=== PATIENT | female | born 1940 | race Caucasian/White ===

== ENCOUNTER 2017-09-18 11:36 | Outpatient (CLI) | payer MEDICARE ==
--- NOTE | 2017-09-18 11:54 | RAD ---
LUMBAR SPINE 4 VIEWS: Date: 09/18/17 HISTORY: Low back pain. FINDINGS: There are extensive degenerative changes in the lumbar spine with dextroscoliosis. There is minimal r etrolisthesis of L1 over L2 vertebral bodies. No change in alignment is seen on flexion or extension. IMPRESSION: Lumbar spondylosis and dextroscoliosis. POS: [facility]
== END 2017-09-18 11:37 | disposition home or self-care (01) ==
LOC: SCSRAD 11:36
PROVIDERS: ATTEND Nurse Practitioner Family
DX: S39.012A Strain of muscle, fascia and tendon of lower back, initial encounter (principal); M47.896 Other spondylosis, lumbar region; M41.9 Scoliosis, unspecified
CPT/HCPCS: 72110

== ENCOUNTER 2017-11-05 14:07 | Outpatient (CLI) | payer MEDICARE ==
--- NOTE | 2017-11-05 14:52 | MMO ---
BILATERAL DIGITAL SCREENING MAMMOGRAMS: History: 77-year-old female presents for digital screening mammography. Comparison: 10-31-15, 03-13-12 FINDINGS: This study is interpreted with the assistance of computer aided detection. Scattered areas of fibroglandular density are noted bilaterally. There are stable, typically benign c alcifications. No direct or indirect evidence of malignancy. IMPRESSION: BIRADS category 2 - benign findings. Continue routine screening. POS: DARRELL
== END 2017-11-05 14:08 | disposition home or self-care (01) ==
LOC: SCSMAMMO 14:07
PROVIDERS: ATTEND Family Medicine
DX: Z12.31 Encounter for screening mammogram for malignant neoplasm of breast (principal)
CPT/HCPCS: 77067

== ENCOUNTER 2018-06-17 14:42 | Outpatient (CLI) | payer MEDICARE ==
--- NOTE | 2018-06-17 15:27 | RAD ---
TWO VIEWS CHEST: Date: 06-17-18 Provided Clinical History: Upper respiratory infection. Comparison: None. FINDINGS: Cardiac and mediastinal silhouette is within normal limits. Lungs appear clear. No pleural fluid or p neumothorax apparent. Emphysematous changes are noted. IMPRESSION: No evidence for an acute cardiopulmonary process. POS: [facility]
== END 2018-06-17 14:43 | disposition home or self-care (01) ==
LOC: SCSRAD 14:42
PROVIDERS: ATTEND Family Medicine
DX: J06.9 Acute upper respiratory infection, unspecified (principal)
CPT/HCPCS: 71046

== ENCOUNTER 2022-07-02 05:44 | Observation (INO) | payer OTHER ==
[2022-07-02] MEDS ORDERED: Vancomycin 1 GM/200 ML (FROZEN) BAG ONE (06:02)
[2022-07-02] MEDS ORDERED: Sodium Chloride 0.9% 100 ML ONE ×2 (06:02→06:56)
[2022-07-02] MEDS ORDERED: Tranexamic Acid 1,000 MG/10 ML VIAL ONE (06:02)
[2022-07-02] MEDS ORDERED: Midazolam HCl 2 mg/2 ml Vial ONE (06:09)
[2022-07-02] MEDS ORDERED: FENTANYL 50 MCG/ML 1 ML VIAL ONE (06:09)
[2022-07-02] MEDS ORDERED: Bupivacaine PF 0.5% 30 ML VIAL ONE ×2 (06:29→06:42)
[2022-07-02] MEDS ORDERED: Ipratropium/Albuterol 3 ML NEB ONE (06:39)
[2022-07-02] MEDS ORDERED: Lidocaine 1% (PF) 30 ML VIAL ONE (06:42)
[2022-07-02] MEDS ORDERED: ePHEDrine 50 MG/ML VIAL ONE (06:45)
[2022-07-02] MEDS ORDERED: Bupivacaine HCl 0.5%/Epinephrine 1:200,000/PF 30 ml Vial ONE (06:45)
[2022-07-02] MEDS ORDERED: Ondansetron PF 4 MG/2 ML Vial ONE (06:45)
[2022-07-02] MEDS ORDERED: Ondansetron PF 4 MG/2 ML Vial IVP PRN (06:46)
[2022-07-02] MEDS ORDERED: diphenhydrAMINE 25 MG CAP PO PRN (06:46)
[2022-07-02] MEDS ORDERED: Zolpidem Tartrate 5 MG TAB PO PRN (06:46)
[2022-07-02] MEDS ORDERED: FENTANYL 50 MCG/ML 1 ML VIAL SLOW IVP PRN (06:46)
[2022-07-02] MEDS ORDERED: Acetaminophen 325 MG TAB PO PRN (06:46)
[2022-07-02] MEDS ORDERED: Promethazine HCl 25 MG/ML VIAL IM PRN (06:46)
[2022-07-02] MEDS ORDERED: CEFAZOLIN 2 GM VIAL ONE (06:56)
[2022-07-02] MEDS ORDERED: Propofol 1,000 MG/100 ML VIAL IV ONE (07:08)
[2022-07-02] MEDS ORDERED: Aspirin Chewable 81 MG TAB PO SCH (09:00)
[2022-07-02] MEDS ORDERED: Multivit, Therapeutic 1 TAB PO SCH (09:00)
[2022-07-02] MEDS: Aspirin 81 mg Enteric Coated Tablet PO SCH ×2 (10:27→21:05)
[2022-07-02] MEDS: Sodium Chloride 0.9% 1,000 ML IV SCH ×2 (10:27→12:45)
[2022-07-02] MEDS: Metoprolol Tartrate 25 MG TAB PO SCH ×2 (10:27→20:57)
[2022-07-02] MEDS: Calcium Carbonate 500 MG TAB PO SCH (10:27)
[2022-07-02] MEDS: diphenhydrAMINE 25 MG CAP PO SCH ×2 (10:27→20:56)
[2022-07-02] MEDS: Lisinopril 2.5 MG TAB PO SCH (10:27)
[2022-07-02] MEDS: Montelukast Sodium 10 mg Tablet PO SCH (10:28)
[2022-07-02 10:41] VITALS: BMI 21.6
[2022-07-02] MEDS: HYDROcodone/Acetaminophen 10/325 mg Tablet PO PRN (12:02)
[2022-07-02] MEDS: Ketorolac Tromethamine 30 MG/ML VIAL IVP SCH ×2 (14:24→20:57)
[2022-07-02] MEDS: CEFAZOLIN 2 GM in Sodium Chloride 0.9% 100 ML IVPB SCH ×2 (14:25→23:50)
[2022-07-02] MEDS ORDERED: Atorvastatin Calcium 10 MG TAB PO SCH (21:00)
[2022-07-02] MEDS ORDERED: Loratadine 10 MG TAB PO SCH (21:00)
[2022-07-03] MEDS: Sodium Chloride 0.9% 1,000 ML IV SCH (05:08)
[2022-07-03] MEDS: Ketorolac Tromethamine 30 MG/ML VIAL IVP SCH (05:33)
[2022-07-03] MEDS: HYDROcodone/Acetaminophen 10/325 mg Tablet PO PRN ×2 (05:34→10:04)
[2022-07-03 06:29] LABS: Hemoglobin 10.1 g/dL (12.0-16.0); Mean Corpuscular Hemoglobin 29.4 pg (27.0-31.0); Mean Corpuscular Volume 89.1 fl (78.0-98.0); Mean Platelet Volume 7.1 fL (7.4-10.4); Platelet Count 182 10x3/uL (130-400); RBC Distribution Width 12.3 % (11.5-14.5); Red Blood Cell (RBC) Count 3.43 mill/uL (4.20-5.40); White Blood Cell (WBC) Count 7.6 10x3/uL (4.8-10.8)
[2022-07-03] MEDS ORDERED: Ferrous Gluconate 324 MG TAB PO SCH (08:00)
[2022-07-03 08:28] VITALS: BP 118/63; TEMP 98.3
[2022-07-03] MEDS: Metoprolol Tartrate 25 MG TAB PO SCH (08:40)
[2022-07-03] MEDS: Lisinopril 2.5 MG TAB PO SCH (08:40)
[2022-07-03] MEDS: Calcium Carbonate 500 MG TAB PO SCH (08:41)
[2022-07-03] MEDS: diphenhydrAMINE 25 MG CAP PO SCH (08:41)
[2022-07-03] MEDS: Montelukast Sodium 10 mg Tablet PO SCH (08:41)
[2022-07-03] MEDS: Aspirin 81 mg Enteric Coated Tablet PO SCH (08:41)
[2022-07-03] MEDS ORDERED: Multivitamin W/ Minerals 1 TAB PO SCH (09:00)
[2022-07-03] MEDS ORDERED: Senokot S 8.6-50 MG TAB PO SCH (09:00)
== END 2022-07-03 12:15 | disposition home or self-care (01) ==
LOC: SDC 05:44 → SURG B 09:55
PROVIDERS: ADMIT Orthopaedic Surgery; ATTEND Orthopaedic Surgery
PROC: 0SR902A Replacement of Right Hip Joint with Metal on Polyethylene Synthetic Substitute, Uncemented, Open Approach (ICD-10-PCS; principal; 2022-07-02)
DX: M16.11 Unilateral primary osteoarthritis, right hip (principal); I25.2 Old myocardial infarction; E78.5 Hyperlipidemia, unspecified; I10 Essential (primary) hypertension; Z79.899 Other long term (current) drug therapy; Z91.041 Radiographic dye allergy status; Z95.5 Presence of coronary angioplasty implant and graft
CPT/HCPCS: 27130; 73502; 85027; 97110 ×2; 97116 ×2; 97530 ×2; 97535; J3010; J3370; 36415; 96365; 96366; 96375; 96376; C1776; G0378; J1885; J2001; J2250; J2405; J2704; J3490; J7050; J7620; S0020